=== PATIENT | female | born 1960 | race Hispanic/Latino ===

== ENCOUNTER → 2019-01-23 | Day surgery (SDC) | payer MEDICARE ==
[2019-01-22 09:36] LABS: BASOPHILS % 0.7 % (0.0-1.0); EOSINOPHILS # (AUTO) 0.2 (0.0-0.4); EOSINOPHILS % 5.4 % (0.0-6.0); HEMATOCRIT 41.9 % (34.2-44.1); LYMPHOCYTES # (AUTO) 1.6 (1.0-3.2); LYMPHOCYTES % 35.7 % (18.0-39.1); MEAN CORPUSCULAR HEMOGLOBIN 33.5 pg (28-32); MEAN CORPUSCULAR HGB CONC 33.4 g/dL (31-35); MEAN CORPUSCULAR VOLUME 100.2 fL (81-99); MONOCYTES # (AUTO) 0.4 (0.2-0.8); MONOCYTES % 9.5 % (4.4-11.3); NEUTROPHILS # (AUTO) 2.1 (2.1-6.9); NEUTROPHILS % 47.6 % (38.7-80.0); PLATELET COUNT 58 x10e3/uL (140-360); RED BLOOD COUNT 4.18 x10e6/uL (3.6-5.1); RED CELL DISTRIBUTION WIDTH 14.2 % (11.7-14.4)
[2019-01-22 09:46] LABS: ALANINE AMINOTRANSFERASE 22 IU/L (0-55); ALBUMIN 2.7 g/dL (3.5-5.0); ALBUMIN/GLOBULIN RATIO 0.7 (0.8-2.0); ALKALINE PHOSPHATASE 126 IU/L (40-150); ANION GAP 11.7 mmol/L (8-16); BLOOD UREA NITROGEN < 5 mg/dL (7-26); CALCIUM 8.7 mg/dL (8.4-10.2); CARBON DIOXIDE 25 mmol/L (22-29); CHLORIDE 109 mmol/L (98-107); CREATININE, SERUM 0.36 mg/dL (0.57-1.11); EST GLOMERULAR FILTRATION RATE > 60 ML/MIN (60-); GLUCOSE 87 mg/dL (74-118); POTASSIUM 3.7 mmol/L (3.5-5.1); SODIUM 142 mmol/L (136-145)
[2019-01-22 09:57] LABS: BUN/CREATININE RATIO 14 (6-25)
[2019-01-22 09:58] LABS: INR 1.31; PROTHROMBIN TIME 16.9 seconds (11.9-14.5)
[2019-01-22 09:59] LABS: PARTIAL THROMBOPLASTIN TIME 42.2 seconds (23.8-35.5)
[2019-01-22 10:15] LABS: PLATELET MORPHOLOGY COMMENT NORMAL
[~2019-01-23] MED LIST: ALENDRONATE SOD70 MG PO; BREO ELLIPTA 21 EACH INH; DOXYCYCLINE HY100 MG PO; GLIPIZIDE-METF1 EAC2 PO; LIDOCAINE HCL 2% LOCAL INJ 5 ML SDV VIAL INJ ONE; LISINOPRIL2.5 MG PO; LOVASTATIN20 MG PO; OMEPRAZOLE40 MG PO; POTASSIUM CHLO20 ME2 PO; PROAIR HFA INH8.5 GM INH; PROPOFOL IV EMULSION 10 MG/ML 50 ML VIAL ONE; SPIRONOLACTONE25 MG PO; TYLENOL # 31 EA PO; TYLENOL ARTHRITIS PO
--- OUTSIDE RECORDS SUMMARY | 2019-01-23 06:57 | XMS REPORT ---
Author [facility] Address Unknown Phone Unavailable Care Team Providers Care Herpetology Teacher Name Role Phone Unavailable Unavailable Payers Payer Name Policy Type Policy Number Effective Date Expiration Date Problems This patient has no known problems. Allergies, Adverse Reactions, Alerts This patient has no known allergies or adverse reactions. Medications This patient has no known medications. Results Test Description Test Time Test Comments Text Results Atomic Results Result Comments - CT CHEST W/O CONTRAST 2018-11-05 10:58:00 Name: BIBI SILVER [facility] : 1960 Age/S: 58 / F [address] [facility] Unit #: [id number] Loc: [place] [address] Phys: Laney Stewart MD Acct: [id number] Dis Date: Status: REG CLI PHONE #: [phone] Exam Date: 11/05/2018 1020 FAX #: [phone] Reason: ABNORMAL FINDINGS EXAMS: CPT CODE: [id number] CT CHEST W/O CONTRAST 88592 REASON FOR EXAM: ABNORMAL FINDINGS EXAM ORDER DATE: 11/05/2018 10:18 AM Ordering M.D.: Laney Stewart MD PROCEDURE: - CT CHEST W/O CONTRAST Comparison:None Axial CT images of the chest were obtained without the use of IV contrast. Reconstructed sagittal and coronal images of the chest were provided for interpretation. Dose reduction techniques were applied. FINDINGS: The absence of IV contrast limits the sensitivity of this exam for detecting soft tissue pathology and differentiating atelectasis from consolidations. Visualized neck: Grossly normal Airways, Lungs and Pleura: Central airways are patent. Mild cylindrical bronchiectasis is seen in the lung bases There are subpleural reticulations. No honeycombing is seen. There are groundglass opacities in the lower lobes and left upper lobe no pulmonary masses or nodules are seen.. Heart, great vessels, pulmonary vessels, mediastinum: Mild calcified atherosclerosis in the aorta. No significant coronary atherosclerosis. No cardiomegaly or pericardial effusion. Lymph nodes: No axillary or internal mammary or mediastinal adenopathy. Hilar lymph nodes are suboptimally evaluated due to the absence of IV contrast. Musculoskeletal/chest wall: Normal Visualized upper abdomen: Small hiatal hernia. Otherw ise normal. Mild nodular contour of the liver. Umbilical vein appears to be recanalized and there are gastroesophageal varices. IMPRESSION: PAGE 1 Signed Report (CONTINUED) Name: BIBI SILVER [facility] : 1960 Age/S: 58 / F [address] [facility] Unit #: [id number] Loc: [place] [address] Phys: Laney Stewart MD Acct: [id number] Dis Date: Status: REG CLI PHONE #: [phone] Exam Date: 11/05/2018 1020 FAX #: [phone] Reason: ABNORMAL FINDINGS EXAMS: CPT CODE: [id number] CT CHEST W/O CONTRAST 61280 <Continued> Subpleural reticulations throughout both lungs with scattered groundglass opacities in the lower lobes and mild cylindrical bronchiectasis in the lung bases. These findings suggest interstitial lung disease. Subtle nodular contour of the liver with findings of gastroesophageal varices and recanalized umbilical vein. This suggests cirrhosis with portal venous hypertension. This can be further evaluated with nonemergent abdominal ultrasound. at 1058 Reported and signed by: Pepe So MD CC: Laney Stewart MD; Claudio Smith MD Technologist:Lina Johsnon RT(R),CT CTDI: DLP: Trnscb Date/Time: 11/05/2018 (1058) [email or web address] Orig Print D/T: S: 11/05/2018 (0419) PAGE 2 Signed Report SCR MAMM BILATERAL ROQUE CAD DIGITAL 2018-08-06 08:48:38 - SCR MAMM BILATERAL ROQUE CAD DIGITALBILATERAL DIGITAL SCREENING MAMMOGRAM 3D/2D WITH CAD: 08/06/2018CLINICAL: Asymptomatic. Digital breast tomosynthesis was performed in addition to routine CC and MLO views. Current mammographic images were evaluated by either a [employer] or a [employer] ImageChecker CAD (computer aided detection system). Comparison is made to exams dated 08/31/2016 mammogram, 08/16 mammogram, and 07/03/2014 mammogram - [facility]. There are scattered fibroglandular tissues in both breasts. No suspicious mass, architectural distortion, malignant type calcification, or lymph node abnormality detected. Breast architecture is stable compared to prior exams.IMPRESSION: NEGATIVEThere is no mammographic evidence of malignancy. Resume annual screening mammography in one year. Jaime Ag M.D. ss/penrad:08/06/2018 08:48:38 [place] Director: Kath MG, [facility] sent: BIRADS 1-2 Normal Mammogram BI-RADS: 1 Negat ayana
[2019-01-23 10:00] VITALS: BP 117/64
== END | disposition home or self-care (01) ==
LOC: OR 06:54
PROVIDERS: ATTEND Internal Medicine Gastroenterology
DX: K74.69 Other cirrhosis of liver (principal); R10.13 Epigastric pain; I10 Essential (primary) hypertension; E11.9 Type 2 diabetes mellitus without complications; E66.3 Overweight; Z68.29 Body mass index [BMI] 29.0-29.9, adult; Z71.3 Dietary counseling and surveillance; Z91.041 Radiographic dye allergy status; Z01.810 Encounter for preprocedural cardiovascular examination; Z01.812 Encounter for preprocedural laboratory examination; D69.6 Thrombocytopenia, unspecified; J44.9 Chronic obstructive pulmonary disease, unspecified; F32.9 Major depressive disorder, single episode, unspecified; K29.70 Gastritis, unspecified, without bleeding; I85.00 Esophageal varices without bleeding; Z79.84 Long term (current) use of oral hypoglycemic drugs
CPT/HCPCS: 36415 ×2; 43235; 80053; 82948; 85025; 85610; 85730; 93005; J2001; J2704